=== PATIENT | female | born 1940 | race Caucasian/White ===

== ENCOUNTER 2018-04-27 07:01 | Observation (INO) ==
[2018-04-27 07:30] LABS: Urine Bilirubin Negative (NEGATIVE); Urine Blood 50 /ul (NEGATIVE); Urine Ketone Negative (NEGATIVE); Urine Nitrite Negative (NEGATIVE); Urine Protein 15 mg/dL (NEGATIVE); Urine Specific Gravity >=1.030 SP.GR. (1.005-1.010); Urine Urobilinogen Normal (NORMAL); Urine pH 5.5 pH (5.0-7.0)
[2018-04-27 07:39] LABS: Urine Amorphous Sediment Moderate - 2+ (NONE-FEW); Urine Appearance Slightly Cloudy (CLEAR); Urine Bacteria TRACE; Urine Color Yellow; Urine Mucus Few - 1+; Urine WBC 0-5 /hpf (0-5)
[2018-04-27 07:41] LABS: Hematocrit 40.6 % (37.0-47.0); Hemoglobin 13.8 gm/dL (12.5-16.0); Mean Corpuscular Hemoglobin 32.6 pg (27-31); Mean Platelet Volume 9.8 fl (8-12.5); Neutrophil # 14.4 K/mm3 (1.3-6.0); Neutrophil % 77.9 % (42-75.0); Platelet Count 347 K/mm3 (150-450); Red Blood Count 4.23 M/mm3 (4.2-5.4); Red Cell Distribution Width 12.9 % (11.5-14.0); White Blood Count 18.5 K/mm3 (4.0-10.5)
[2018-04-27 07:42] LABS: Total Cells Counted 100
[2018-04-27 07:43] LABS: Albumin * 3.7 gm/dl (3.4-5.0); Anion Gap 9.6 mmol/L (6.8-13.8); BUN/Creatinine Ratio 24.4 (9.0-21.6); Bilirubin, Total 1.8 mg/dL (0.0-1.1); Ca. Corrected For Albumin 8.7 mg/dL (8.4-10.2); Calcium * 8.8 mg/dL (7.9-10.9); Carbon Dioxide 27.8 mmol/L (24-32.6); Potassium 3.4 mmol/L (3.4-4.6); Total Protein 7.5 gm/dL (6.2-8.2)
--- NOTE | 2018-04-27 07:49 | ERNOTE ---
Abdominal HPI - Narrative Date of Service: 04/27/18 - General Chief Complaint: Abdominal Pain Time Seen by Provider: 04/27/18 07:44 Source: patient - Immun/Allergies/Home Medications Immunizatons: IMMUNIZATION HX Immunizations Up to Date Yes History of Influenza Vaccine Yes Hx Pneumococcal Vaccination Yes Allergies/Adverse Reactions: Allergies ciprofloxacin [From Cipro] Adverse Reaction (Mild, Verified 04/27/18 07:11) Diarrhea Home Medications: HOME MEDICATIONS Aspirin [Aspirin EC] 81 mg PO DAILY 10/23/17 [Last Taken Unknown] Simvastatin [Zocor] 10 mg PO HS 10/23/17 [Last Taken Unknown] alprazolam 0.25 mg tablet 0.25 mg PO TID PRN #60 tab 02/15/18 [Last Taken Unknown] benazepril 20 mg-hydrochlorothiazide 25 mg tablet 1 tab PO DAILY 03/05/18 [Last Taken Unknown] Saccharomyces boulardii 250 mg capsule 250 mg PO BID 03/15/18 [Last Taken Unknown] berberine-herbal comb no.18 capsule cap PO HS cap 03/15/18 [Last Taken Unknown] Melatonin 5 mg PO HS PRN 04/27/18 [Last Taken Unknown] - History of Present Illness Narrative: Patient is a 77-year-old female who presents to the emergency room complaining of lower abdominal pain that has been ongoing for the past 12-16 hours. She localizes her pain to the infraumbilical region. She does have a history consistent with irritable bowel syndrome combined type, over the past 24 hours patient to have had difficulty moving her bowels. She reports she normally moves her bowels at least one to 4 times every day and said this is unusual for her. She presents to the emergency room because of persistent intermittent pain. She denies any nausea, vomiting, diarrhea, urinary symptoms. Associated Symptoms: Present: denies symptoms Review of Systems - Review of Systems Constitutional: Present: no symptoms reported EYE: Present: no symptoms reported ENT: Present: no symptoms reported Respiratory: Present: no symptoms reported Cardiology: Present: no symptoms reported Gastrointestinal/Abdominal: Present: no symptoms reported, abdominal pain. Absent: nausea, vomiting, diarrhea, constipation, eating less, drinking less Genitourinary: Present: no symptoms reported Musculoskeletal: Present: no symptoms reported Skin: Present: no symptoms reported Neurological: Present: no symptoms reported Endocrine: Present: no symptoms reported Hematologic/Lymphatic: Present: no symptoms reported Psych: Present: no symptoms reported Medical History (Last Reviewed 03/15/18 @ 10:13 by Nora Arreola) Anemia Onset Date: Unknown Anxiety disorder Onset Date: ~11/15/14 Arthritis Onset Date: Unknown GERD (gastroesophageal reflux disease) Onset Date: Unknown Hyperlipidemia Onset Date: ~09/27/12 Hypertension Onset Date: Unknown IBS (irritable bowel syndrome) Onset Date: Unknown Insomnia Onset Date: ~02/08/13 Diverticulitis Onset Date: ~08/10/14 Surgical History: Surgical History (Last Reviewed 03/15/18 @ 10:14 by Nora Arreola) History of benign breast tumor Onset Date: Unknown History of cholecystectomy Onset Date: Unknown History of colonoscopy Onset Date: ~11/09/14 History of hysterectomy Onset Date: ~11/09/14 Family History: Family History (Last Reviewed 03/15/18 @ 10:14 by Nora Arreola) Brother Hepatitis Father Cancer Hernia Sister Diverticulitis Arthritis Anemia Social History: Preferred Language Montenegrin Abuse History No History of abuse Psych History Hx of Anxiety Alcohol Use none Drug Use none Physical Exam - Physical Exam General Appearance: Present: wd/wn, alert, mild distress Head Exam: Present: normal inspection, no evidence of injury Eye Exam: Normal inspection: bilateral, PERRL: bilateral, EOMI: bilateral Neck: Present: normal inspection, nontender, supple, full range of motion Respiratory: Present: no respiratory distress, normal breath sounds, no accessory muscle use, chest nontender Cardiovascular/Chest: Present: regular rate, rhythm, no murmur, normal peripheral pulses Gastrointestinal/Abdominal: Present: tenderness, other - she is to have some tenderness to palpation of the lower abdominal region, below the umbilical region Extremity Exam: Present: normal inspection, normal except -, non-tender, normal range of motion Neurological Exam: Present: alert, oriented, normal mood/affect, no m otor/sensory deficits, 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 - Vital Signs Vital Signs: Vital Signs 04/27/18 07:06 04/27/18 07:14 Temperature 36.3 C Pulse Rate 83 79 Respiratory Rate 12 12 Blood Pressure 159/89 H O2 Sat by Pulse Oximetry 99 97 - Progress/Reassessment Chief Complaint: Abdominal Pain Progress:: Unchanged - Transfer of Care Physician Sign Out: Levar Waldrop Receiving Physician: Norma Almendarez Pending Results: Labs, X-ray results Departure Clinical Impression: Abdominal pain Qualifiers: Abdominal location: lower abdomen, unspecified Qualified Code(s): R10.30 - Lower abdominal pain, unspecified - Departure Disposition: Still a patient Condition: Stable Referrals: Miriam Kate MD [Primary Care Provider] -
[2018-04-27 07:51] LABS: Lymphocyte 9 % (20-51); Monocyte 7 % (0-9); Neutrophil 84 % (42-75); Neutrophil # 15.5 K/mm3 (1.3-6.0); Platelet Estimate Normal (NORMAL); RBC Morphology Normal (NORMAL)
[2018-04-27] MEDS ORDERED: KETOROLAC TROMETHAMINE 30 MG/ML VIAL IM ONE (07:54)
[2018-04-27] MEDS ORDERED: KETOROLAC TROMETHAMINE 30 MG/ML VIAL ONE (08:01)
[2018-04-27] MEDS ORDERED: KETOROLAC TROMETHAMINE 30 MG/ML VIAL IV ONE (08:28)
[2018-04-27] MEDS ORDERED: DIATRIZOATE MEGLUMINE, SODIUM 30 ML BTL PO ONE (08:28)
[2018-04-27] MEDS ORDERED: DIATRIZOATE MEGLUMINE, SODIUM 30 ML BTL ONE (08:29)
[2018-04-27] MEDS ORDERED: metroNIDAZOLE/SODIUM CHLORIDE 500 MG/100 ML BAG IV SCH (12:15)
[2018-04-27] MEDS: metroNIDAZOLE/SODIUM CHLORIDE 500 MG/100 ML BAG IV SCH ×2 (13:36→21:56)
[2018-04-27] MEDS ORDERED: MELATONIN 3,000 MCG TABLET PO PRN (15:28)
[2018-04-27] MEDS ORDERED: CIPROFLOXACIN IN 5 % DEXTROSE 400 MG/200 ML BAG IV SCH (15:30)
--- NOTE | 2018-04-27 15:54 | HP ---
Chief Complaint - Chief Complaint Date of Service: 04/27/18 Time of Service: 15:44 Chief Complaint: abdominal pain History of Present Illness: Jordana Alejo, is a 77-year-old white female, patient of Dr. Kate, with past medical history who generalized anxiety disorder, hyperlipidemia, hypertension, diverticulosis with diverticulitis, who was admitted on 04/27/2018 because of abdominal pain. One day prior to admission, the patient started having infraumbilical abdominal pain, crampy to sharp in character, 7-8/10 in severity, constant, not relieved with bowel movement. In the evening, she started having diarrhea 4-6 times, foul-smelling small-volume. She denied any nausea, vomiting, fever, chills. Because the pain did not get better she went to our emergency room where she was found to have an elevated white blood cell count of 18,000, and a CT scan which showed circumferential bowel thickening of her sigmoid colon which could be due to infection, inflammation, ischemia, or even malignancy. The emergency room doctor discussed the case to Dr. Avila who feels this is diverticulitis as he did a colonoscopy 2 years ago which did not show any malignancy. She was then admitted for further evaluation and treatment. Medical History (Last Reviewed 04/27/18 @ 12:47 by Leigha Mistry RN) Anemia Onset Date: Unknown Anxiety disorder Onset Date: ~11/15/14 Arthritis Onset Date: Unknown GERD (gastroesophageal reflux disease) Onset Date: Unknown Hyperlipidemia Onset Date: ~09/27/12 Hypertension Onset Date: Unknown IBS (irritable bowel syndrome) Onset Date: Unknown Insomnia Onset Date: ~02/08/13 Diverticulitis Onset Date: ~08/10/14 Surgical History: Surgical History (Last Reviewed 04/27/18 @ 12:47 by Leigha Mistry RN) History of benign breast tumor Onset Date: Unknown History of cholecystectomy Onset Date: Unknown History of colonoscopy Onset Date: ~11/09/14 History of hysterectomy Onset Date: ~11/09/14 Family History: Family History (Last Reviewed 04/27/18 @ 12:47 by Leigha Mistry RN) Brother Hepatitis Father Cancer Hernia Sister Diverticulitis Arthritis Anemia Social History: Patient Lives/Resources With Spouse Utilized Occupation Retired Preferred Language Lao Do you have any episcopalian or Yes: Mormon cultural preference? Smoking Status Never smoker Have you smoked in the past 12 No months Abuse History No History of abuse Psych History Hx of Anxiety Alcohol Use none Drug Use none Review Of Systems (GEN) - Review of Systems Generalized/Overall Review: Absent: Chills, Fever Respiratory: Absent: Shortness of Breath Cardiac: Absent: Chest Pain, Edema, Palpitations Abdominal: Present: Abdominal Pain, Diarrhea. Absent: Nausea, Vomiting Genitourinary: Absent: Urgency, Frequency Musculoskeletal: Absent: Joint Pain Immunizations: IMMUNIZATION HX Immunizations Up to Date Yes History of Influenza Vaccine Yes Hx Pneumococcal Vaccination Yes Allergies/Adverse Reactions: Allergies Allergy/AdvReac Type Severity Reaction Status Date / Time ciprofloxacin [From Cipro] AdvReac Severe Diarrhea Verified 04/27/18 15:45 Home Medications: HOME MEDICATIONS Aspirin [Aspirin EC] 81 mg PO DAILY 10/23/17 [Last Taken 04/26/18] Simvastatin [Zocor] 10 mg PO HS 10/23/17 [Last Taken 04/26/18] alprazolam 0.25 mg tablet 0.25 mg PO TID PRN #60 tab 02/15/18 [Last Taken Unknown] Saccharomyces boulardii 250 mg capsule 250 mg PO BID 03/15/18 [Last Taken 04/26/18] berberine-herbal comb no.18 capsule 1 cap PO HS cap 03/15/18 [Last Taken Un known] Benazepril HCl 20 mg PO DAILY 04/27/18 [Last Taken 04/26/18] Melatonin 5 mg PO HS PRN 04/27/18 [Last Taken Unknown] Exam - Exam Vital Signs: Vital Signs - Last Taken Temp 36.8 C 04/27/18 12:57 Pulse 74 04/27/18 12:57 Resp 18 04/27/18 12:57 BP 167/66 H 04/27/18 12:57 Pulse Ox 98 04/27/18 12:57 Constitutional: Present: Alert, Oriented x3, Cooperative ENT Exam: Present: hearing grossly normal Eye Exam: bilateral eye: normal inspection, PERRL, EOMI Neck: Present: supple Respiratory: Present: decreased breath sounds, No rales, No wheezing Cardiovascular/Chest: Present: regular rate, rhythm, no JVD, no murmur Abdomen: Present: soft, no rebound tenderness, tender - slightly, distended - slightly, hypoactive. Absent: rebound tenderness Extremity: Present: normal inspection, no calf tenderness Diagnostic Studies: Abnormal Lab Results 04/27/18 04/27/18 04/27/18 Range/Units 07:25 07:25 07:25 WBC 18.5 H (4.0-10.5) K/mm3 MCH 32.6 H (27-31) pg Immature Gran # (Auto) 0.08 H (0.000-0.0310) K/mm3 Neutrophils % 77.9 H (42-75.0) % Neutrophils % (Manual) 84 H (42-75) % Lymphocytes % 11.5 L (20-51) % Lymphocytes % (Manual) 9 L (20-51) % Monocytes % 9.6 H (0.0-9) % Neutrophils # 14.4 H (1.3-6.0) K/mm3 Neutrophils # (Manual) 15.5 H (1.3-6.0) K/mm3 Monocytes # 1.8 H (0.0-1.0) k/mm3 Monocytes # (Manual) 1.3 H (0.0-1.0) k/mm3 BUN/Creatinine Ratio 24.4 H (9.0-21.6) Random Glucose 166 H (70-110) mg/dL Total Bilirubin 1.8 H (0.0-1.1) mg/dL C-Reactive Prot, Quant (0.0-0.9) mg/dL Lipase 55 L (73-393) U/L Urine Protein 15 H (NEGATIVE) mg/dL Urine Blood 50 H (NEGATIVE) /ul Urine RBC 5-10 H (0-5) /hpf Ur Epithelial Cells 5-10 H (0-5) /hpf Amorphous Sediment Moderate - 2+ H (NONE-FEW) Urine Mucus Few - 1+ H (NONE) 04/27/18 Range/Units 07:40 WBC (4.0-10.5) K/mm3 MCH (27-31) pg Immature Gran # (Auto) (0.000-0.0310) K/mm3 Neutrophils % (42-75.0) % Neutrophils % (Manual) (42-75) % Lymphocytes % (20-51) % Lymphocytes % (Manual) (20-51) % Monocytes % (0.0-9) % Neutrophils # (1.3-6.0) K/mm3 Neutrophils # (Manual) (1.3-6.0) K/mm3 Monocytes # (0.0-1.0) k/mm3 Monocytes # (Manual) (0.0-1.0) k/mm3 BUN/Creatinine Ratio (9.0-21.6) Random Glucose (70-110) mg/dL Total Bilirubin (0.0-1.1) mg/dL C-Reactive Prot, Quant 5.1 H (0.0-0.9) mg/dL Lipase (73-393) U/L Urine Protein (NEGATIVE) mg/dL Urine Blood (NEGATIVE) /ul Urine RBC (0-5) /hpf Ur Epithelial Cells (0-5) /hpf Amorphous Sediment (NONE-FEW) Urine Mucus (NONE) Laboratory Results WBC 18.5 K/mm3 (4.0-10.5) H 04/27/18 07:25 RBC 4.23 M/mm3 (4.2-5.4) 04/27/18 07:25 Hgb 13.8 gm/dL (12.5-16.0) 04/27/18 07:25 Hct 40.6 % (37.0-47.0) 04/27/18 07:25 MCV 96.0 fl (78-100) 04/27/18 07:25 MCH 32.6 pg (27-31) H 04/27/18 07:25 MCHC 34.0 g/dl (32-36) 04/27/18 07:25 RDW 12.9 % (11.5-14.0) 04/27/18 07:25 Plt Count 347 K/mm3 (150-450) 04/27/18 07:25 MPV 9.8 fl (8-12.5) 04/27/18 07:25 Immature Gran % (Auto) 0.40 % (0.001-0.429) 04/27/18 07:25 Immature Gran # (Auto) 0.08 K/mm3 (0.000-0.0310) H 04/27/18 07:25 Neutrophils % 77.9 % (42-75.0) H 04/27/18 07:25 Neutrophils % (Manual) 84 % (42-75) H 04/27/18 07:25 Lymphocytes % 11.5 % (20-51) L 04/27/18 07:25 Lymphocytes % (Manual) 9 % (20-51) L 04/27/18 07:25 Monocytes % 9.6 % (0.0-9) H 04/27/18 07:25 Monocytes % (Manual) 7 % (0-9) 04/27/18 07:25 Eosinophils % 0.3 % (0.0-3.0) 04/27/18 07:25 Basophils % 0.3 % (0.0-1.0) 04/27/18 07:25 Nucleated RBC % 0.0 k/mm3 (0-1) 04/27/18 07:25 Neutrophils # 14.4 K/mm3 (1.3-6.0) H 04/27/18 07:25 Neutrophils # (Manual) 15.5 K/mm3 (1.3-6.0) H 04/27/18 07:25 Lymphocytes # 2.13 k/mm3 (1.5-3.5) 04/27/18 07:25 Lymphocytes # (Manual) 1.7 k/mm3 (1.5-3.5) 04/27/18 07:25 Monocytes # 1.8 k/mm3 (0.0-1.0) H 04/27/18 07:25 Monocytes # (Manual) 1.3 k/mm3 (0.0-1.0) H 04/27/18 07:25 Eosinophils # 0.1 k/mm3 (0.0-0.7) 04/27/18 07:25 Absolute Basophils 0.1 k/mm3 (0.0-0.1) 04/27/18 07:25 Platelet Estimate Normal (NORMAL) 04/27/18 07:25 RBC Morphology Normal (NORMAL) 04/27/18 07:25 Sodium 133 mmol/L (132-142) 04/27/18 07:25 Plasma Sodium 134 mmol/L (130-142) 04/27/18 07:25 Potassium 3.4 mmol/L (3.4-4.6) 04/27/18 07:25 Chloride 99 mmol/L (97-106) 04/27/18 07:25 Carbon Dioxide 27.8 mmol/L (24-32.6) 04/27/18 07:25 Anion Gap 9.6 mmol/L (6.8-13.8) 04/27/18 07:25 BUN 19 mg/dL (3-23) 04/27/18 07:25 Creatinine 0.78 mg/dL (0.4-1.4) 04/27/18 07:25 Est GFR (Non-Af Amer) 76 mL/min (60-130) D 04/27/18 07:25 BUN/Creatinine Ratio 24.4 (9.0-21.6) H 04/27/18 07:25 Random Glucose 166 mg/dL (70-110) H 04/27/18 07:25 Lactic Acid, Venous 2.0 mmol/L (0.4-2.0) 04/27/18 07:25 Calcium 8.8 mg/dL (7.9-10.9) 04/27/18 07:25 Calcium Adj for Albumin 8.7 mg/dL (8.4-10.2) 04/27/18 07:25 Total Bilirubin 1.8 mg/dL (0.0-1.1) H 04/27/18 07:25 AST 14 U/L (0-48) 04/27/18 07:25 ALT 19 U/L (19-67) 04/27/18 07:25 Alkaline Phosphatase 108 U/L (50-170) 04/27/18 07:25 C-Reactive Prot, Quant 5.1 mg/dL (0.0-0.9) H 04/27/18 07:40 Total Protein 7.5 gm/dL (6.2-8.2) 04/27/18 07:25 Albumin 3.7 gm/dl (3.4-5.0) 04/27/18 07:25 Amylase 30 U/L (25-115) 04/27/18 07:25 Lipase 55 U/L (73-393) L 04/27/18 07:25 Urine Color Yellow 04/27/18 07:25 Urine Appearance Slightly cloudy (CLEAR) 04/27/18 07:25 Urine pH 5.5 pH (5.0-7.0) 04/27/18 07:25 Ur Specific [place] >=1.030 SP.GR. (1.005-1.010) 04/27/18 07:25 Urine Protein 15 mg/dL (NEGATIVE) H 04/27/18 07:25 Urine Glucose (UA) Negative mg/dL (NEGATIVE) 04/27/18 07:25 Urine Ketones Negative mg/dL (NEGATIVE) 04/27/18 07:25 Urine Blood 50 /ul (NEGATIVE) H 04/27/18 07:25 Urine Nitrate Negative (NEGATIVE) 04/27/18 07:25 Urine Bilirubin Negative mg/dl (NEGATIVE) 04/27/18 07:25 Prot Sulfosalicylic Acd Negative mg/dL (0) 04/27/18 07:25 Urine Urobilinogen Normal EU/dl (NORMAL) 04/27/18 07:25 Ur Leukocyte Esterase Negative /ul (NEGATIVE) 04/27/18 07:25 Urine RBC 5-10 /hpf (0-5) H 04/27/18 07:25 Urine WBC 0-5 /hpf (0-5) 04/27/18 07:25 Ur Epithelial Cells 5-10 /hpf (0-5) H 04/27/18 07:25 Amorphous Sediment Moderate - 2+ (NONE-FEW) H 04/27/18 07:25 Urine Bacteria Trace (NONE) 04/27/18 07:25 Urine Mucus Few - 1+ (NONE) H 04/27/18 07:25 Urine Culture Comments No culture indicated 04/27/18 07:25 Stl C.difficile Tox A&B Negative (Negative) 04/27/18 13:00 Assessment/Plan - Assessment/Plan (1) Diverticulitis Problem: Acute Qualifiers: Diverticulitis site: large intestine Diverticulitis bleeding: without bleeding Diverticulitis complication: without perforation or abscess Qualified Code(s): K57.32 - Diverticulitis of large intestine without perforation or abscess without bleeding (2) Abdominal pain Assessment: due to diverticulitis. continue with pain medications PRN. Problem: Acute Qualifiers: Abdominal location: lower abdomen, unspecified Qualified Code(s): R10.30 - Lower abdominal pain, unspecified (3) Hypertension Assessment: continue with home medications Problem: Chronic Qualifiers: Hypertension type: essential hypertension Qualified Code(s): I10 - Essential (primary) hypertension (4) Hyperlipidemia Assessment: continue with home medications. Problem: Chronic Qualifiers: Hyperlipidemia type: mixed hyperlipidemia Qualified Code(s): E78.2 - Mixed hyperlipidemia
[2018-04-27] MEDS ORDERED: CEFEPIME HCL 1 GM in DEXTROSE 5 % IN WATER 100 ML IV SCH ×2 (16:00)
[2018-04-27] MEDS: POTASSIUM CHLORIDE 20 MEQ in NORMAL SALINE 1,000 ML IV SCH (17:41)
[2018-04-27] MEDS ORDERED: HYDROmorphone HCL 1 MG/ML DISP.SYRIN IV PRN (17:51)
[2018-04-27] MEDS: SACCHAROMYCES BOULARDII 250 MG CAPSULE PO SCH (21:57)
[2018-04-28] MEDS: CEFEPIME HCL 1 GM in DEXTROSE 5 % IN WATER 100 ML IV SCH ×6 (00:55→23:45)
[2018-04-28] MEDS: POTASSIUM CHLORIDE 20 MEQ in NORMAL SALINE 1,000 ML IV SCH ×3 (02:36→22:46)
[2018-04-28] MEDS: metroNIDAZOLE/SODIUM CHLORIDE 500 MG/100 ML BAG IV SCH ×3 (05:24→21:08)
[2018-04-28 07:58] LABS: Hematocrit 34.8 % (37.0-47.0); Hemoglobin 11.6 gm/dL (12.5-16.0); Mean Cell Volume 97.2 fl (78-100); Mean Corpuscular Hemoglobin 32.4 pg (27-31); Mean Corpuscular Hgb Conc 33.3 g/dl (32-36); Mean Platelet Volume 9.8 fl (8-12.5); Neutrophil # 6.6 K/mm3 (1.3-6.0); Platelet Count 231 K/mm3 (150-450); Red Blood Count 3.58 M/mm3 (4.2-5.4); Red Cell Distribution Width 12.8 % (11.5-14.0); White Blood Count 9.4 K/mm3 (4.0-10.5)
[2018-04-28 08:02] LABS: Anion Gap 10.5 mmol/L (6.8-13.8); Calcium * 8.2 mg/dL (7.9-10.9); Carbon Dioxide 26.9 mmol/L (24-32.6); Estimated Creat Clear 61.3; Potassium 3.4 mmol/L (3.4-4.6)
--- NOTE | 2018-04-28 08:16 | DS ---
(1) Diverticulitis Problem: Acute Qualifiers: Diverticulitis site: large intestine Diverticulitis bleeding: without bleeding Diverticulitis complication: without perforation or abscess Qualified Code(s): K57.32 - Diverticulitis of large intestine without perforation or abscess without bleeding (2) Abdominal pain Problem: Acute Qualifiers: Abdominal location: lower abdomen, unspecified Qualified Code(s): R10.30 - Lower abdominal pain, unspecified (3) Hypertension Problem: Chronic Qualifiers: Hypertension type: essential hypertension Qualified Code(s): I10 - Essential (primary) hypertension (4) Hyperlipidemia Problem: Chronic Qualifiers: Hyperlipidemia type: mixed hyperlipidemia Qualified Code(s): E78.2 - Mixed hyperlipidemia Description of Stay: Jordana Alejo, is a 77-year-old white female, patient of Dr. Kate, with past medical history who generalized anxiety disorder, hyperlipidemia, hypertension, diverticulosis with diverticulitis, who was admitted on 04/27/2018 because of abdominal pain. One day prior to admission, the patient started having infraumbilical abdominal pain, crampy to sharp in character, 7-8/10 in severity, constant, not relieved with bowel movement. In the evening, she started having diarrhea 4-6 times, foul-smelling small-volume. She denied any nausea, vomiting, fever, chills. Because the pain did not get better she went to our emergency room where she was found to have an elevated white blood cell count of 18,000, and a CT scan which showed circumferential bowel thickening of her sigmoid colon which could be due to infection, inflammation, ischemia, or even malignancy. The emergency room doctor discussed the case with Dr. Avila who felt this is diverticulitis as he did a colonoscopy 2 years ago which did not show any malignancy. She was then admitted and was kept on clear liquids and started on IV antibiotics, IV pain medication and IVF. Her WBC this morning is back to normal and her abdominal pain is significantly down. Her diarrhea too has improved. Will discharge patient on oral antibiotics and progress her diet slowly. Procedures Performed: none Results and Findings: Lab Pending Results 04/27/18 07:25: WBC 18.5 H, RBC 4.23, Hgb 13.8, Hct 40.6, MCV 96.0, MCH 32.6 H, MCHC 34.0, RDW 12.9, Plt Count 347, MPV 9.8, Immature Gran % (Auto) 0.40, Immature Gran # (Auto) 0.08 H, Neutrophils % 77.9 H, Neutrophils % (Manual) 84 H, Lymphocytes % 11.5 L, Lymphocytes % (Manual) 9 L, Monocytes % 9.6 H, Monocytes % (Manual) 7, Eosinophils % 0.3, Basophils % 0.3, Nucleated RBC % 0.0, Neutrophils # 14.4 H, Neutrophils # (Manual) 15.5 H, Lymphocytes # 2.13, Lymp hocytes # (Manual) 1.7, Monocytes # 1.8 H, Monocytes # (Manual) 1.3 H, Eosinophils # 0.1, Absolute Basophils 0.1, Platelet Estimate Normal, RBC Morphology Normal 04/27/18 07:25: Sodium 133, Plasma Sodium 134, Potassium 3.4, Chloride 99, Carbon Dioxide 27.8, Anion Gap 9.6, BUN 19, Creatinine 0.78, Est GFR (Non-Af Amer) 76 D, BUN/Creatinine Ratio 24.4 H, Random Glucose 166 H, Calcium 8.8, Calcium Adj for Albumin 8.7, Total Bilirubin 1.8 H, AST 14, ALT 19, Alkaline Phosphatase 108, Total Protein 7.5, Albumin 3.7, Amylase 30, Lipase 55 L 04/27/18 07:25: Urine Color Yellow, Urine Appearance Slightly cloudy, Urine pH 5.5, Ur Specific [place] >=1.030, Urine Protein 15 H, Urine Glucose (UA) Negative, Urine Ketones Negative, Urine Blood 50 H, Urine Nitrate Negative, Urine Bilirubin Negative, Prot Sulfosalicylic Acd Negative, Urine Urobilinogen Normal, Ur Leukocyte Esterase Negative, Urine RBC 5-10 H, Urine WBC 0-5, Ur Epithelial Cells 5-10 H, Amorphous Sediment Moderate - 2+ H, Urine Bacteria Trace, Urine Mucus Few - 1+ H, Urine Culture Comments No culture indicated 04/27/18 07:25: Lactic Acid, Venous 2.0 04/27/18 07:40: C-Reactive Prot, Quant 5.1 H 04/27/18 13:00: Stl C.difficile Tox A&B Negative 04/28/18 07:51: WBC 9.4 D, RBC 3.58 L, Hgb 11.6 L, Hct 34.8 L, MCV 97.2, MCH 32.4 H, MCHC 33.3, RDW 12.8, Plt Count 231, MPV 9.8, Immature Gran % (Auto) 0.30, Immature Gran # (Auto) 0.03, Neutrophils % 71.0, Lymphocytes % 17.7 L, Monocytes % 9.3 H, Eosinophils % 1.3, Basophils % 0.4, Nucleated RBC % 0.0, Neutrophils # 6.6 H, Lymphocytes # 1.66, Monocytes # 0.9, Eosinophils # 0.1, Absolute Basophils 0.0 04/28/18 07:51: Sodium 137, Plasma Sodium 138, Potassium 3.4, Chloride 103, Carbon Dioxide 26.9, Anion Gap 10.5, BUN 11, Creatinine 0.58, Est GFR (Non-Af Amer) 107 D, BUN/Creatinine Ratio 19.0, Random Glucose 144 H, Calcium 8.2 Discharge Location: Home Disposition: Home self-care Condition: Stable Discharge Activity: Activity as tolerated Discharge Diet: Clear Liquids - x 1 more day and then progress to full liquids then progress to consistent carb diet as tolerated Referrals: Miriam Kate MD [Primary Care Provider] - Additional Patient Instructions (free text): -Please make TCM appointment unless assisted discharge. Thank you! Jovana @ [phone].Follow up with PCP in 1 week. Prescriptions (Any new or edited meds): Acetaminophen 650 mg PO QID PRN #60 tablet PRN Reason: Pain/Fever Amox Tr/Potassium Clavulanate [Augmentin 500-125 Tablet] 500 mg PO Q12H #14 tab traMADol HCL [Tramadol HCl] 50 mg PO QID PRN #30 tablet PRN Reason: Pain Complete Home Medications List: Complete Home Medication List: Aspirin [Aspirin EC] 81 mg PO DAILY 10/23/17 Simvastatin [Zocor] 10 mg PO HS 10/23/17 alprazolam 0.25 mg tablet 0.25 mg PO TID PRN #60 tab 02/15/18 Saccharomyces boulardii 250 mg capsule 250 mg PO BID 03/15/18 berberine-herbal comb no.18 capsule 1 cap PO HS cap 03/15/18 Benazepril HCl 20 mg PO DAILY 04/27/18 Melatonin 5 mg PO HS PRN 04/27/18 Acetaminophen 650 mg PO QID PRN #60 tablet 04/28/18 Amox Tr/Potassium Clavulanate [Augmentin 500-125 Tablet] 500 mg PO Q12H #14 tab 04/28/18 traMADol HCL [Tramadol HCl] 50 mg PO QID PRN #30 tab 04/28/18
[2018-04-28] MEDS: ASPIRIN 81 MG TABLET.DR PO SCH (09:25)
[2018-04-28] MEDS: SACCHAROMYCES BOULARDII 250 MG CAPSULE PO SCH ×2 (09:25→21:07)
[2018-04-28] MEDS: ENALAPRIL MALEATE 20 MG TABLET PO SCH (09:25)
[2018-04-28] MEDS: ALPRAZolam 0.25 MG TABLET PO PRN ×2 (09:41→15:41)
[2018-04-28] MEDS ORDERED: ALPRAZolam 0.25 MG TABLET PO ONE (17:08)
[2018-04-28] MEDS ORDERED: ONDANSETRON HCL/PF 2 MG/ML VIAL IV PRN (18:41)
[2018-04-28] MEDS: ALPRAZolam 0.5 MG TABLET PO PRN (21:07)
[2018-04-29] MEDS: metroNIDAZOLE/SODIUM CHLORIDE 500 MG/100 ML BAG IV SCH ×2 (04:56→12:59)
[2018-04-29 08:07] LABS: Hematocrit 35.7 % (37.0-47.0); Hemoglobin 11.7 gm/dL (12.5-16.0); Mean Cell Volume 98.1 fl (78-100); Mean Corpuscular Hemoglobin 32.1 pg (27-31); Mean Corpuscular Hgb Conc 32.8 g/dl (32-36); Mean Platelet Volume 9.6 fl (8-12.5); Neutrophil # 4.8 K/mm3 (1.3-6.0); Platelet Count 235 K/mm3 (150-450); Red Blood Count 3.64 M/mm3 (4.2-5.4); Red Cell Distribution Width 12.7 % (11.5-14.0); White Blood Count 7.3 K/mm3 (4.0-10.5)
[2018-04-29 08:12] LABS: Anion Gap 6.9 mmol/L (6.8-13.8); BUN/Creatinine Ratio 11.1 (9.0-21.6); Calcium * 8.2 mg/dL (7.9-10.9); Carbon Dioxide 24.7 mmol/L (24-32.6); Estimated Creat Clear 56.4; Potassium 3.6 mmol/L (3.4-4.6)
[2018-04-29] MEDS: POTASSIUM CHLORIDE 20 MEQ in NORMAL SALINE 1,000 ML IV SCH (08:34)
[2018-04-29] MEDS: ENALAPRIL MALEATE 20 MG TABLET PO SCH (08:37)
[2018-04-29] MEDS: ASPIRIN 81 MG TABLET.DR PO SCH (08:37)
--- NOTE | 2018-04-29 08:44 | DS ---
(1) Diverticulitis Problem: Acute Qualifiers: Diverticulitis site: large intestine Diverticulitis bleeding: without bleeding Diverticulitis complication: without perforation or abscess Qualified Code(s): K57.32 - Diverticulitis of large intestine without perforation or abscess without bleeding (2) Abdominal pain Problem: Acute Qualifiers: Abdominal location: lower abdomen, unspecified Qualified Code(s): R10.30 - Lower abdominal pain, unspecified (3) Hypertension Problem: Chronic Qualifiers: Hypertension type: essential hypertension Qualified Code(s): I10 - Essential (primary) hypertension (4) Hyperlipidemia Problem: Chronic Qualifiers: Hyperlipidemia type: mixed hyperlipidemia Qualified Code(s): E78.2 - Mixed hyperlipidemia Description of Stay: Jordana Alejo, is a 77-year-old white female, patient of Dr. Kate, with past medical history who generalized anxiety disorder, hyperlipidemia, hypertension, diverticulosis with diverticulitis, who was admitted on 04/27/2018 because of abdominal pain. One day prior to admission, the patient started having infraumbilical abdominal pain, crampy to sharp in character, 7-8/10 in severity, constant, not relieved with bowel movement. In the evening, she started having diarrhea 4-6 times, foul-smelling small-volume. She denied any nausea, vomiting, fever, chills. Because the pain did not get better she went to our emergency room where she was found to have an elevated white blood cell count of 18,000, and a CT scan which showed circumferential bowel thickening of her sigmoid colon which could be due to infection, inflammation, ischemia, or even malignancy. The emergency room doctor discussed the case with Dr. Avila who felt this is diverticulitis as he did a colonoscopy 2 years ago which did not show any malignancy. She was then admitted and was kept on clear liquids and started on IV antibiotics, IV pain medication and IVF. She was supposed to go home yesterday but the patient was very anxious due her diarrhea coming back again. We increased her lorazepam . Her WBC this morning is still back to normal and her abdominal pain is significantly down. Her diarrhea too has improved and she had only had one bout last night. Will discharge patient on oral antibiotics and progress her diet slowly. They had wanted their mother to be started on a an SSRI/SRNI. I told them I would recommend starting her on antidepressant/antianxiety pill when she is much better as the beneficial effects is not felt after 2-4 weeks and initially might give her the opposite effects- tachycardia/increased BP, N/V or diarrhea etc. She has alprazolam at home and will continue with that for now. She may need a follow up colonoscopy when her inflammation has settled down. We will leave that to her PCP. Procedures Performed: none Results and Findings: Pending Mircobiology Results 04/27/18 15:44 Blood Blood Culture - Preliminary NO GROWTH 24 HOURS 04/27/18 15:44 Blood Blood Culture - Preliminary NO GROWTH 24 HOURS Lab Pending Results 04/27/18 07:25: WBC 18.5 H, RBC 4.23, Hgb 13.8, Hct 40.6, MCV 96.0, MCH 32.6 H, MCHC 34.0, RDW 12.9, Plt Count 347, MPV 9.8, Immature Gran % (Auto) 0.40, Immature Gran # (Auto) 0.08 H, Neutrophils % 77.9 H, Neutrophils % (Manual) 84 H, Lymphocytes % 11.5 L, Lymphocytes % (Manual) 9 L, Monocytes % 9.6 H, Monocytes % (Manual) 7, Eosinophils % 0.3, Basophils % 0.3, Nucleated RBC % 0.0, Neutrophils # 14.4 H, Neutrophils # (Manual) 15.5 H, Lymphocytes # 2.13, Lymphocytes # (Manual) 1.7, Monocytes # 1.8 H, Monocytes # (Manual) 1.3 H, Eo sinophils # 0.1, Absolute Basophils 0.1, Platelet Estimate Normal, RBC Morphology Normal 04/27/18 07:25: Sodium 133, Plasma Sodium 134, Potassium 3.4, Chloride 99, Carbon Dioxide 27.8, Anion Gap 9.6, BUN 19, Creatinine 0.78, Est GFR (Non-Af Amer) 76 D, BUN/Creatinine Ratio 24.4 H, Random Glucose 166 H, Calcium 8.8, Calcium Adj for Albumin 8.7, Total Bilirubin 1.8 H, AST 14, ALT 19, Alkaline Phosphatase 108, Total Protein 7.5, Albumin 3.7, Amylase 30, Lipase 55 L 04/27/18 07:25: Urine Color Yellow, Urine Appearance Slightly cloudy, Urine pH 5.5, Ur Specific [place] >=1.030, Urine Protein 15 H, Urine Glucose (UA) Negative, Urine Ketones Negative, Urine Blood 50 H, Urine Nitrate Negative, Urine Bilirubin Negative, Prot Sulfosalicylic Acd Negative, Urine Urobilinogen Normal, Ur Leukocyte Esterase Negative, Urine RBC 5-10 H, Urine WBC 0-5, Ur Epithelial Cells 5-10 H, Amorphous Sediment Moderate - 2+ H, Urine Bacteria Trace, Urine Mucus Few - 1+ H, Urine Culture Comments No culture indicated 04/27/18 07:25: Lactic Acid, Venous 2.0 04/27/18 07:40: C-Reactive Prot, Quant 5.1 H 04/27/18 13:00: Stl C.difficile Tox A&B Negative 04/28/18 07:51: WBC 9.4 D, RBC 3.58 L, Hgb 11.6 L, Hct 34.8 L, MCV 97.2, MCH 32.4 H, MCHC 33.3, RDW 12.8, Plt Count 231, MPV 9.8, Immature Gran % (Auto) 0.30, Immature Gran # (Auto) 0.03, Neutrophils % 71.0, Lymphocytes % 17.7 L, Monocytes % 9.3 H, Eosinophils % 1.3, Basophils % 0.4, Nucleated RBC % 0.0, Neutrophils # 6.6 H, Lymphocytes # 1.66, Monocytes # 0.9, Eosinophils # 0.1, Absolute Basophils 0.0 04/28/18 07:51: Sodium 137, Plasma Sodium 138, Potassium 3.4, Chloride 103, Carbon Dioxide 26.9, Anion Gap 10.5, BUN 11, Creatinine 0.58, Est GFR (Non-Af Amer) 107 D, BUN/Creatinine Ratio 19.0, Random Glucose 144 H, Calcium 8.2 04/29/18 07:59: Sodium 134, Plasma Sodium 134, Potassium 3.6, Chloride 106, Carbon Dioxide 24.7, Anion Gap 6.9, BUN 7, Creatinine 0.63, Est GFR (Non-Af Amer) 97, BUN/Creatinine Ratio 11.1, Random Glucose 107, Calcium 8.2 04/29/18 07:59: WBC 7.3 D, RBC 3.64 L, Hgb 11.7 L, Hct 35.7 L, MCV 98.1, MCH 32.1 H, MCHC 32.8, RDW 12.7, Plt Count 235, MPV 9.6, Immature Gran % (Auto) 0.30, Immature Gran # (Auto) 0.02, Neutrophils % 66.0, Lymphocytes % 20.6, Monocytes % 9.2 H, Eosinophils % 3.3 H, Basophils % 0.6, Nucleated RBC % 0.0, Neutrophils # 4.8, Lymphocytes # 1.50, Monocytes # 0.7, Eosinophils # 0.2, Absolute Basophils 0.0 Discharge Location: Home Disposition: Home self-care Condition: Stable Discharge Activity: Activity as tolerated Discharge Diet: Clear Liquids - then with Ensure clear then progress to full liquids then low fiber diet as tolerated. When inflammation is resolved start high fiber diet. Referrals: Miriam Kate MD [Primary Care Provider] - Problem Oriented Discharge Instructions to Patient/Family: Abdominal Pain, Adult, [id number] Additional Patient Instructions (free text): -Please make TCM appointment unless long-term discharge. Thank you! Jovana @ [phone].Follow up with with on 05-05-18 at 9:45am. Prescriptions (Any new or edited meds): Acetaminophen 650 mg PO QID PRN #60 tablet PRN Reason: Pain/Fever ALPRAZolam [Xanax] 0.25 mg PO TID PRN #60 tab PRN Reason: Anxiety Amox Tr/Potassium Clavulanate [Augmentin 500-125 Tablet] 500 mg PO Q12H #14 tab Ondansetron HCl [Zofran] 4 mg PO QID PRN #20 tablet PRN Reason: Nausea And Vomiting traMADol HCL [Tramadol HCl] 50 mg PO QID PRN #30 tab PRN Reason: Pain Complete Home Medications List: Complete Home Medication List: Aspirin [Aspirin EC] 81 mg PO DAILY 10/23/17 Simvastatin [Zocor] 10 mg PO HS 10/23/17 Saccharomyces boulardii 250 mg capsule 250 mg PO BID 03/15/18 berberine-herbal comb no.18 capsule 1 cap PO HS cap 03/15/18 Benazepril HCl 20 mg PO DAILY 04/27/18 Melatonin 5 mg PO HS PRN 04/27/18 Acetaminophen 650 mg PO QID PRN #60 tablet 04/28/18 Amox Tr/Potassium Clavulanate [Augmentin 500-125 Tablet] 500 mg PO Q12H #14 tab 04/28/18 traMADol HCL [Tramadol HCl] 50 mg PO QID PRN #30 tab 04/28/18 ALPRAZolam [Xanax] 0.25 mg PO TID PRN #60 tab 04/29/18 Ondansetron HCl [Zofran] 4 mg PO QID PRN #20 tablet 04/29/18
[2018-04-29] MEDS: SACCHAROMYCES BOULARDII 250 MG CAPSULE PO SCH (08:58)
[2018-04-29] MEDS: CEFEPIME HCL 1 GM in DEXTROSE 5 % IN WATER 100 ML IV SCH ×2 (12:12)
[2018-04-29] MEDS: ALPRAZolam 0.5 MG TABLET PO PRN (14:41)
[2018-04-29 14:47] VITALS: BP 132/65
== END 2018-04-29 15:15 | disposition home or self-care (01) ==
LOC: ER 07:01 → MS 07:01
PROVIDERS: ADMIT Internal Medicine; ATTEND Internal Medicine
DX: K57.32 Diverticulitis of large intestine without perforation or abscess without bleeding
CPT/HCPCS: 36415; 74177; 80048; 80053; 81001; 82150; 83605; 83690; 85025; 86140; 87040; 87493; 96365; 96366; 96367; 96375; 99285; G0378; J2405